=== PATIENT | male | born 1990 | race Caucasian/White ===

== ENCOUNTER 2022-02-25 21:44 | Emergency (ER) | payer BC ==
[2022-02-26] MEDS ORDERED: Lidocaine 1% 5 ML VIAL INJECT ONE (00:54)
[2022-02-26] MEDS ORDERED: Bacitracin Oint 1 GM U/D Packet TOP ONE (00:54)
== END 2022-02-26 01:44 | disposition home or self-care (01) ==
LOC: DL.ED 21:44
DX: S81.811A Laceration without foreign body, right lower leg, initial encounter (principal); W26.8XXA Contact with other sharp object(s), not elsewhere classified, initial encounter
CPT/HCPCS: 12001; 99282